=== PATIENT | female | born 1995 | race Caucasian/White ===

== ENCOUNTER 2023-07-23 18:41 | Inpatient (IN) | payer OTHER, SELFPAY ==
[2023-07-23 18:57] VITALS: BP 117/73; PULSE 82; TEMP 36.3
[2023-07-23 20:14] VITALS: BP 109/66; PULSE 96
[2023-07-23] MEDS: Propranolol HCL 10 MG TABLET PO (20:16)
[2023-07-23] MEDS: traZODone HCL 50 MG TABLET PO (20:16)
--- NOTE | 2023-07-23 20:37 | PC.ADMIT ---
Addendum entered by Kayy Beltran RN 07/23/23 21:14: Pt reports anxiety 0/10, depression 7/10, pain 0/10. Pt has been non compliant with home medications. Original Note: Vandana was admitted to at 1850 from [facility] on a CV for treatment of SI. Pt was brought to [facility] by her fiance for si. Per crisis assessment, pt drank a full bryan chough syrup and 1 white claw in attempt to OD, Pt does not disclose this information during admission assessment. Pt denies ETOh use, crisis assessment says she had 1 white claw. Pt has been hospitalized in the past for ETOH abuse. Pt is COVID negative. Pt is A+0X4, pleasant and cooperative. Sharps/skin assessment is unremarkable. Pt mood is depressed with a flat affect. Pt denies AH/VH, does not appear to be responding to internal stimuli. Pt denies HI. Pt reports passive SI with no plan, states she can come to staff if needed for SI/HI. Pt is safe on the unit. Pt oriented to unit. Pt reports having a good appetite with no recent weight loss. Pt reports no issues with sleep. Pt denies substance abuse. Pt is placed on 15 minute checks. Provider aware of admission. Monitor for safety and begin treatment plan.
--- NOTE | 2023-07-23 20:57 | P.CONHOSP_ITS ---
History of Present Illness Data of Consult Service Date: 07/23/23 Requesting physician: Kyler Trejo Primary Care Provider: Unknown Physician HPI Reason for consult: Medical H and P Patient with history of bipolar disorder and no other significant past medical history admitted to Psychiatry with consult placed to hospitalist service for medical H and P. The patient comes to us from [facility] ED. While in the ED, hematology studies and chemistries were within normal limits. Vital signs were stable. She denies any illicit drug use, marijuana use, cigarette smoking and only endorses occasional alcohol use. She has no complaints at this time. Review of Systems Review of Systems: General: No fevers, malaise, unintentional weight loss HEENT: No blurred vision, diplopia. No sore throat, nasal congestion, rhinorrhea, sinus pain, ear pain Cardiovascular: No chest pain, palpitations, or leg edema Respiratory: No shortness of breath, wheezing, cough GI: No abdominal pain, nausea, vomiting, diarrhea, constipation, melena, hematochezia : No dysuria, hematuria, increased urinary frequency, decreased urinary output MSK: No myalgia, back pain Neuro: No headaches, weakness, paresthesias Skin: No rashes or lesions [facility] Medical History (Updated 07/23/23 @ 20:58 by CARLOTTA Jane) No pertinent past medical history Social History Household Members: Significant Other and Children Household Members Other:: 3 children Housing: Apartment Patient Tobacco Use Status: Never used Tobacco Smoked in Last 30 Days: No Patient Interested in Nicotine Replacement: No Patient Given Instructions on How to Stop Smoking: No Second Hand Smoke Exposure: No Use of substances other than those prescribed or required for medical reasons: No Have you been hit, kicked, punched, or otherwise hurt by someone within the past year? If so, by whom?: No Do you feel safe in your current relationship?: Yes Is there a partner from a previous relationship who is making you feel unsafe now?: No Are you made to feel afraid or neglected: No Advance Directives: No Advance Directives Information Provided: Yes Do you have thoughts of harming others: None Do you have a plan to hurt others: No Plan Recently lost weight without trying: No Nutrition Risks: No Nutritional Risk Patient : No : No Poor oral hygiene: No Meds Allergies Allergy/AdvReac Type Severity Reaction Status Date / Time No Known Allergies Allergy Unverified 08/04/20 17:17 Active Medications: Current Medications Acetaminophen (Acetaminophen 325 Mg Tablet) 650 mg PO Q6H PRN PRN Reason: Headache/Pain Mild Scale (1-3) Al Hydroxide/Mg Hydroxide (Magnesium Hydrox/Alum Hydrox 30 Ml Oral.Susp) 30 ml PO Q6H PRN PRN Reason: Heartburn/Nausea Al Hydroxide/Mg Hydroxide (Magnesium Hydrox/Alum Hydrox 30 Ml Oral.Susp) 30 ml PO Q6H PRN PRN Reason: Heartburn/Nausea Folic Acid (Folic Acid 1 Mg Tablet) 1 mg PO DAILY NEO Hydroxyzine HCl (Hydroxyzine Hcl 25 Mg Tablet) 25 mg PO Q6H PRN PRN Reason: Anxiety Lorazepam (Lorazepam 1 Mg Tablet) 1 mg PO Q2H PRN PRN Reason: CIWA 8-11 Lorazepam (Lorazepam 1 Mg Tablet) 2 mg PO Q2H PRN PRN Reason: CIWA 12-15 Lorazepam (Lorazepam 1 Mg Tablet) 3 mg PO Q2H PRN PRN Reason: CIWA > 15; and call MD Magnesium Hydroxide (Milk Of Magnesia 30 Ml Oral.Susp) 30 ml PO DAILY PRN PRN Reason: Constipation Magnesium Hydroxide (Milk Of Magnesia 30 Ml Oral.Susp) 30 ml PO DAILY PRN PRN Reason: Constipation Multivitamins/Vitamin C (Multivitamin Tablet) 1 tab PO DAILY NEO Nicotine Polacrilex (Nicotine Polacrilex 2 Mg Gum) 4 mg BUCCAL Q2H PRN PRN Reason: Nicotine Cravings Olanzapine (Olanzapine 5 Mg Tablet) 5 mg PO Q4H PRN PRN Reason: agitation, francis Propranolol HCl (Propranolol Hcl 10 Mg Tablet) 10 mg PO TID NEO; Protocol Last Admin: 07/23/23 20:16 Dose: 10 mg Trazodone HCl (Trazodone Hcl 50 Mg Tablet) 50 mg PO BEDTIME MRX1 PRN PRN Reason: Insomnia Last Admin: 07/23/23 20:16 Dose: 50 mg Trazodone HCl (Trazodone Hcl 50 Mg Tablet) 50 mg PO BEDTIME MRX1 PRN PRN Reason: Insomnia Physical Exam Vital Signs and Narrative: Vital Signs: Last Vital Signs Temp 97.4 F 07/23/23 18:57 Pulse 96 07/23/23 20:14 BP 109/66 07/23/23 20:14 Constitutional - Awake and Alert, No apparent distress Eyes - PERRLA, EOMI Cardiovascular - S1S2, RRR, No edema Respiratory - Normal lung expansion, Normal respiratory effort, No respiratory distress, CTA bilaterally Gastrointestinal - NT / ND; +BS; No rebound or guarding Extremities - no calf tenderness bilaterally, no swelling Musculoskeletal - Normal inspection, normal ROM Skin - Warm/Dry Neurological - Alert & oriented x3, CN II-XII in tact, 5/5 strength BUE and BLE Psychological - depressed mood Assessment and Plan (1) Routine medical exam: Status: Acute Plan 27-year-old female without any significant medical history admitted to Psychiatry with consult placed to hospitalist service for medical H and P. # mood disorder -plan per Psychiatry Alejandra Edward ED report reviewed with CBC, CMP, urine tox screen within normal limits. Thank you for allowing me to participate in this consult. Signing off at this time. Please do not hesitate to call for further questions. Time Spent With Patient Time: Total time managing care of this patient today ____ minutes.
--- NOTE | 2023-07-24 | ECG_ITS ---
Test Reason : CP Blood Pressure : / mmHG Vent. Rate : 080 BPM Atrial Rate : 080 BPM P-R Int : 188 ms QRS Dur : 090 ms QT Int : 394 ms P-R-T Axes : 051 097 057 degrees QTc Int : 454 ms Normal sinus rhythm Rightward axis Borderline ECG When compared with ECG of 24-JUL-2023 08:54, No significant change was found Referred By: Rigo Bhatt Electronically Signed By:MELANI DE LA TORRE
--- NOTE | 2023-07-24 03:01 | PC.NURSE ---
PT SIGNED A 3 DAY NOTICE ON Saturday07/23/23, UP ON Saturday07/26/23
[2023-07-24 06:00] VITALS: BP 108/74; PULSE 88; RESP 16
[2023-07-24] MEDS: hydrOXYzine HCL 50 MG TABLET PO (08:26)
[2023-07-24] MEDS: Propranolol HCL 10 MG TABLET PO (08:26)
[2023-07-24] MEDS: Multivitamin TABLET 1 TAB PO (08:26)
[2023-07-24] MEDS: Folic Acid 1 MG TABLET PO (08:27)
--- NOTE | 2023-07-24 09:00 | ECG_ITS ---
Test Reason : s/p overdose Blood Pressure : / mmHG Vent. Rate : 065 BPM Atrial Rate : 065 BPM P-R Int : 190 ms QRS Dur : 090 ms QT Int : 416 ms P-R-T Axes : 050 101 047 degrees QTc Int : 432 ms Sinus rhythm with marked sinus arrhythmia Rightward axis Borderline ECG No previous ECGs available Referred By: Meliza Cazares Electronically Signed By:MELANI DE LA TORRE
[2023-07-24 09:44] LABS: Estimated Average Glucose 103 mg/dL; Hemoglobin A1c % 5.2 % (<6.0)
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
[2023-07-24 10:35] LABS: Alanine Aminotransferase 16 U/L (0-31); Albumin Level 4.1 g/dL (3.5-5.0); Alkaline Phosphatase 43 U/L (39-117); Anion Gap 13 (12-20); Aspartate Amino Transferase 20 U/L (5-31); Bilirubin Direct 0.4 mg/dL (0.0-0.5); Bilirubin Total 1.4 mg/dL (0.0-1.0); Blood Urea Nitrogen 11 mg/dL (9-16); Calcium 9.5 mg/dL (8.4-10.2); Carbon Dioxide 22 mmol/L (22-29); Chloride 105 mmol/L (96-108); Cholesterol 170 mg/dL (<200); Estimated Glomerular Filt Rate > 60; Glucose Fasting 76 mg/dL (60-99); HDL Cholesterol 70 mg/dL (>40); LDL Cholesterol Calculated 83 mg/dL (<100); Sodium 136 mmol/L (135-145); Total Protein 7.8 g/dL (6.5-8.0); Triglycerides 88 mg/dL (<150)
[2023-07-24 10:51] LABS: Vitamin B12 1000 pg/mL (200-900)
[2023-07-24 10:53] LABS: Free T4 (Free Thyroxine) 0.99 ng/dL (0.71-1.85)
[2023-07-24] MEDS: Cariprazine HCl 1.5 MG CAPSULE PO (15:00)
[2023-07-24 18:00] VITALS: BP 116/72; PULSE 80; RESP 16; TEMP 36.4; O2SAT 96
[2023-07-25 07:56] VITALS: BP 104/59; PULSE 94; RESP 16; TEMP 36.6; O2SAT 96
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
[2023-07-25] MEDS: Multivitamin TABLET 1 TAB PO (08:46)
[2023-07-25] MEDS: Cariprazine HCl 1.5 MG CAPSULE PO (08:46)
[2023-07-25] MEDS: cloNIDine HCL 0.1 MG TABLET PO (13:22)
[2023-07-25 13:52] VITALS: BP 127/81; PULSE 109
[2023-07-25] MEDS: lamoTRIgine 25 MG TABLET PO (13:52)
[2023-07-25 18:09] VITALS: BP 127/62; PULSE 109; TEMP 36.8
[2023-07-25] MEDS: Lithium Carbonate ER 450 MG TABLET.ER PO (20:26)
[2023-07-25] MEDS: traZODone HCL 50 MG TABLET PO (20:27)
--- NOTE | 2023-07-26 08:39 | PM.PSYDC ---
DS: Providers Provider Date of Service: 07/26/23 Date of admission: 07/23/23 18:41 Date of discharge: 07/26/23 Primary care physician: Unknown Physician Attending physician on admission: Rigo Bhatt Consults: 07/23/23 19:26 Consult to Hospitalist Routine Comment: Consulting Provider: Hospitalist Reason For Exam: OSH admission Attending physician on discharge: Rigo Bhatt DS: Diagnosis Discharge Diagnosis (1) Bipolar II disorder: Status: Acute (2) PTSD (post-traumatic stress disorder): Status: Acute (3) Social anxiety disorder: Status: Acute DS: Medications Discharge Medications Home Medications: Home Medications Medication Instructions Recorded Confirmed folic acid 1 mg tablet 1 mg PO DAILY 07/23/23 07/23/23 multivitamin 1 tab PO DAILY 07/23/23 07/23/23 Previous Rx's Medication Instructions Recorded clonidine HCl 0.1 mg tablet 0.1 mg PO Q4H PRN anxiety 30 days 07/26/23 #90 tabs lamotrigine 100 mg tablet 100 mg PO DAILY 30 days #30 tabs 07/26/23 lamotrigine 25 mg tablet See Rx Instructions .Route 07/26/23 .COMPLEX 26 days #40 tabs lithium carbonate 450 mg 450 mg PO BEDTIME 30 days #30 tabs 07/26/23 tablet,extended release Mental Status Exam Mental Status Exam Narrative: Pt is alert and oriented; behavior is cooperative, friendly and calm; patient is not in distress; dressed in hospital attire with adequate hygiene; mood is described as hopeful and affect congruent, downcast; eye contact appropriate; Speech is normal rate, volume and prosody and not pressured; some psychomotor retardation present; thought process is organized and goal directed; Thought content is on tx, also on discharge; otherwise pertinent to relevant topics and without any delusional content, paranoid ideations or grandiosity; no SI; no HI. There is no evidence of perceptual disturbance. Patients insight and judgment fair Data Data Completed and Pending Completed studies during hospitalization [Text1]: 07/24/23 08:23 Sodium 136 Potassium 4.0 Chloride 105 Carbon Dioxide 22 Anion Gap 13 BUN 11 Creatinine 0.81 Estim Creat Clear Calc TNP Estimated GFR > 60 Fasting Glucose 76 Estimat Average Glucose 103 Hemoglobin A1c % 5.2 Calcium 9.5 Magnesium 2.0 Total Bilirubin 1.4 H Direct Bilirubin 0.4 AST 20 ALT 16 Alkaline Phosphatase 43 Total Protein 7.8 Albumin 4.1 Triglycerides 88 Cholesterol 170 LDL Cholesterol, Calc 83 HDL Cholesterol 70 Vitamin B12 1000 H Folate 12.0 TSH 1.00 Free T4 0.99 DS: Summary Hospital Course Hospital Course: HPI: Patient is a 27-year-old female, mother, master's degree student, adopted 9 years old with history of depression, depression and francis and PTSD who presents for worsening depression and SI in the face of unprocessed/untreated trauma, depression and mourning the completed suicide her older biological brother -patient has a combination of untreated childhood and adolescent trauma with subsequent PTSD and social anxiety as well as bipolar depression with intermittent hypomanic episodes. Patient meets criteria for bipolar disorder -despite trauma history and painful struggles with her adoptive parents, patient has graduated college and is now enrolled in a master's program, with a fiancee and 3 children. Very resilient. She is looking for medication treatment and outpatient providers including therapy. Reviewed risks/side effects of Vraylar, lithium and other mood stabilizers and patient agrees to trial; open to going back on Lamictal as well -Suicidality has resolved. Patient is eager to get back home because she does not want to fall behind in school. -patient drink alcohol just 1 drink a day before admission; no recent alcohol abuse and does not need detox Hospital course: 07/26 patient reports she is doing better, no SI at all and future oriented. She says she is feeling hopeful because she is finally getting treatment, with both medication an access to a therapist. Discussed medication and she agrees to try lithium, understanding risks/side effects. Also agrees to get back on Lamictal since it was tolerated before and can help with PTSD. Patient aware that she has a disconnect between her accomplishments and how she thinks of her cells and that this is due to history of trauma starting with or for an itch in [place]. Patient is looking forward to engaging with the therapist. Patient has 3 day notice in. She wants to discharge tomorrow because she does not want to get further behind in classes. She is returning to her supportive fiance and her children, whom she loves dearly. Patient is not in imminent risk for harm to self. Sales Communications Manager would prefer patient to stay longer to see if she tolerates lithium; it is being started at a low dose, likely subtherapeutic and patient will have to get labs done as an outpatient. This was discussed with patient to understands the risks of not being monitored while starting his medication but still wants to discharge and feels that the potential benefits outweigh the risk. Patient is not in imminent risk for harm to self or others and request for discharge honored. Time spent discussing smoking cessation with patient: 3 to 10 minutes Status at Discharge Functional status at discharge: independent ambulation Overall status at discharge: patient is progressing back to baseline Time Spent with Patient Time attestation: Total time managing care of this patient today ____ minutes. Time spent: Less than 30 minutes Discharge Plan Discharge Anticipated Discharge Date/Time: 07/26/23 11:30 Patient Disposition: Home, Self-Care Discharge Diagnosis: Bipolar II disorder Referrals: Namrata Barber NP [Nurse Practitioner] - (Office will call to schedule follow-up.) Discharge Medications: New clonidine HCl 0.1 mg Tablet 0.1 mg PO Q4H PRN (Reason: anxiety) 30 Days Qty: 90 1RF Protocol: Hold for SBP< HOLD for SBP < : 90 lamotrigine 100 mg tablet 100 mg PO DAILY 30 Days Qty: 30 0RF Rx Instructions: take after having completed 50mg daily for 14 days lithium carbonate 450 mg Tablet Extended Release 450 mg PO BEDTIME 30 Days Qty: 30 1RF Continued multivitamin Tablet 1 tab PO DAILY folic acid 1 mg tablet 1 mg PO DAILY Changed lamotrigine 25 mg tablet See Rx Instructions .ROUTE .COMPLEX 26 Days Qty: 40 0RF Rx Instructions: take 1 tab daily for 12 days; then take 2 tabs daily for 14 days Discontinued hydroxyzine HCl 50 mg tablet 50 mg PO DAILY Rx Instructions: Take 1 tablet (50 mg total) by mouth every 6 (six) hours as needed for anxiety (insomnia) propranolol 10 mg tablet 10 mg PO TID Rx Instructions: Take 1 tablet (10 mg total) by mouth 3 (three) times a day Discharge Orders: Discharge Order (Routine); Ordered 07/26/23 Ordered By: Rigo Bhatt Diet: Regular diet Activity on Discharge: As tolerated Stand Alone Forms: Patient Portal Discharge page, Community Support Print Language: Maltese Other Ambulatory Orders: Blood Urea Nitrogen (Routine) Timeframe: [id number] Facility: [facility] - Location: Laboratory Ordered By: Rigo Bhatt Creatinine (Routine) Timeframe: [id number] Facility: [facility] - Location: Laboratory Ordered By: Rigo Bhatt [place] (Routine) Timeframe: [id number] Facility: [facility] - Location: Laboratory Ordered By: Rigo Bhatt TSH reflex Free T4 (Routine) Timeframe: [id number] Facility: [facility] - Location: Laboratory Ordered By: Rigo Bhatt Care Plan Goals: Maintain mood and safe behaviors Take medications as prescribed Continue to pursue sobriety Practice coping skills Continue with outpatient providers and reach out to them as needed Health Concerns: Mood stability and behaviors Plan of Treatment: Follow up with your PCP, psychiatric provider and other outpatient providers regarding above concerns Take medications as prescribed GET LABS DRAWN 07/30/23 Assessment: Risk assessment at time of discharge:? Patient was interviewed prior to discharge and found to be fully oriented and without any SI or HI. Patient has insight and demonstrates good judgment in terms of wanting to pursue treatment. Patient is not in imminent risk of harm to self or others and has a safety plan that includes presenting to the closest ER or calling 911 if feeling unsafe.? Patient has been observed closely by nursing and unit staff throughout admission; patient has not engaged in any behaviors that suggest dangerousness to self or others and has demonstrated appropriate behaviors and impulse control Discharge Date/Time: 07/26/23 11:13
[2023-07-26] MEDS: Multivitamin TABLET 1 TAB PO (09:32)
[2023-07-26 09:37] VITALS: BP 121/70; PULSE 115; RESP 18; TEMP 36.2; O2SAT 99
[2023-07-26] MEDS: cloNIDine HCL 0.1 MG TABLET PO (10:11)
== END 2023-07-26 11:13 | disposition home or self-care (01) | DRG 885 ==
PROVIDERS: Clinical Nurse Specialist Psychiatric/Mental Health, Adult; Admitting Provider Psychiatry & Neurology Psychiatry; Visit Provider Psychiatry & Neurology Psychiatry
DX: F31.81 Bipolar II disorder (principal); R45.851 Suicidal ideations; F43.10 Post-traumatic stress disorder, unspecified; F40.10 Social phobia, unspecified; Z79.899 Other long term (current) drug therapy
CPT/HCPCS: 36415; 80053; 80061; 80076; 82607; 82746; 83036; 83735; 84439; 84443; 93005

== ENCOUNTER → 2023-07-23 18:41 | Outpatient (BNV) | payer OTHER, SELFPAY | PROVIDERS: Admitting Provider Psychiatry & Neurology Psychiatry; Visit Provider Psychiatry & Neurology Psychiatry | DX: F31.81 Bipolar II disorder (principal); F43.10 Post-traumatic stress disorder, unspecified; F40.10 Social phobia, unspecified | CPT/HCPCS: 90792; 99232; 99238 ==

== ENCOUNTER → 2023-07-23 18:41 | Outpatient (BNV) | payer OTHER, SELFPAY | PROVIDERS: Admitting Provider Psychiatry & Neurology Psychiatry; Visit Provider Physician Assistant | DX: Z02.2 Encounter for examination for admission to residential institution (principal) | CPT/HCPCS: 99429 ==